=== PATIENT | male | born 1960 | race Caucasian/White ===

== ENCOUNTER 2020-05-12 19:44 | Emergency (ER) | payer OTHER ==
[~2020-05-12] VITALS: Ht 170.2 cm; Wt 76.2 kg
[2020-05-12 19:51] VITALS: BP 124/86
--- NOTE | 2020-05-12 19:59 | NUR ---
PT CAME TO THE ED C/O BEING SLEEP DEPRIVED X 2 WEEKS. RX'D BUSPAR THEN CHANGED TO GABAPENTIN. NO RELIEF. PT HAS SOME LEFT LOWER EXTREMITY DISCOMFORT. [facility]H DIXON AT [facility] FOR [facility]AL
--- NOTE | 2020-05-12 20:17 | NUR ---
Patient discharged to home in stable condition. Written and verbal after care instructions given. Patient verbalizes understanding of instruction.pt. ambulatory with a steady gait
== END 2020-05-12 20:18 | disposition home or self-care (01) ==
LOC: ER 19:51
DX: G47.00 Insomnia, unspecified (principal); I10 Essential (primary) hypertension; F43.10 Post-traumatic stress disorder, unspecified

== ENCOUNTER 2023-10-12 19:20 | Emergency (ER) | payer OTHER ==
[~2023-10-12] VITALS: Ht 167.6 cm; Wt 81.6 kg
[2023-10-12] MEDS ORDERED: ACETAMINOPHEN ES 500 MG TABLET ONE (20:28)
[2023-10-12] MEDS ORDERED: ACETAMINOPHEN 325 MG TABLET PO ONE (20:30)
[2023-10-12] MEDS ORDERED: LIDOCAINE 1%-EPI 1:100,000 20 ML VIAL ONE (21:18)
[2023-10-12] MEDS ORDERED: TDAP [DIPH/PERTUSSIS/TET] 0.5 ML VIAL IM ONE ×2 (21:30→21:40)
[2023-10-12] MEDS ORDERED: TYL2T PO (22:33)
[2023-10-12] MEDS ORDERED: AMOX-430 PO (22:33)
[2023-10-12 22:40] VITALS: BP 142/90; TEMP 98.5; O2SAT 98
== END 2023-10-12 22:40 | disposition home or self-care (01) ==
LOC: ER 19:23
DX: S02.40EA Zygomatic fracture, right side, initial encounter for closed fracture (principal); I10 Essential (primary) hypertension; Z79.899 Other long term (current) drug therapy; Y04.0XXA Assault by unarmed brawl or fight, initial encounter; Y93.89 Activity, other specified; Y92.89 Other specified places as the place of occurrence of the external cause; Y99.8 Other external cause status
CPT/HCPCS: 12013; 70450; 70486; 90471; 90715; 99285; J3490